=== PATIENT | female | born 1990 | race Caucasian/White ===

== ENCOUNTER 2016-06-17 05:20 | Inpatient (IN) | payer OTHER ==
[2016-06-17] MEDS ORDERED: LACTATED RINGERS 2,000 ML ONE (05:35)
[2016-06-17] MEDS: LACTATED RINGERS 1,000 ML IV NR ×2 (05:45→06:37)
[2016-06-17] MEDS ORDERED: EMLA TP PRN (06:03)
[2016-06-17] MEDS ORDERED: BICITRA PO ONE (06:03)
[2016-06-17] MEDS ORDERED: PEPCID IV ONE (06:03)
[2016-06-17] MEDS ORDERED: REGLAN IV ONE (06:03)
--- NOTE | 2016-06-17 06:08 | History and Physical Report ---
History of Present Illness Date of examination: 06/17/16 Date of admission: 06/17/16 05:20 Chief complaint: Presents for repeat c/s Past History Past Medical History: no pertinent history Past Surgical History: section (x1) Family/Genetic History: diabetes, hypertension Social history: no significant social history - Obstetrical History Expected Date of Delivery: 06/22/16 Actual Gestation: 39 Week(s) 2 Day(s) #1 Gender: Female year: Method of Delivery: Medications and Allergies Allergies Allergy/AdvReac Type Severity Reaction Status Date / Time No Known Allergies Allergy Verified 06/17/16 06:00 Review of Systems All systems: negative - Vital Signs Vital signs: Vital Signs Pulse BP 107 H 144/87 06/17/16 05:50 06/17/16 05:50 Temp Pulse Resp BP Pulse Ox 107 H 144/87 06/17/16 05:50 06/17/16 05:50 - Physical Exam Breasts: Positive: deferred Cardiovascular: Regular rate, Normal S1, Normal S2 Abdomen: Positive: normal appearance, soft, normal bowel sounds. Negative: distention, tenderness Vulva: both: normal Vagina: Positive: normal moisture. Negative: discharge Cervix: Negative: lesion, discharge Uterus: Positive: normal size, normal contour Adnexa: both: normal Anus/Rectum: Positive: normal perianal skin, heme negative. Negative: rectal mass, hemorrhoids Extremities: Deep Tendon Reflex Grade: Normal +2 - Obstetrical FHR: auscultation normal Uterine Contraction Monitor Mode: External Cervical Dilatation: 0 Cervical Effacement Percentage: 0 station: -2 Uterine Contraction Pattern: Irregular Uterine Tone Measurement Phase: Resting Results All other labs normal. Assessment and Plan iup at 39 weeks, previous c/s x1 plan- prepare fore repeat c/s
[2016-06-17 06:18] LABS: Basophils % (Auto) 0.2 % (0.0-1.8); Eosinophils % (Auto) 0.9 % (0.0-4.3); Hemoglobin 11.3 gm/dl (10.1-14.3); Mean Corpuscular HGB Conc 33 % (30-34); Mean Corpuscular Hemoglobin 28 pg (28-32); Mean Corpuscular Volume 85 fl (79-97); Platelet Count 207 K/mm3 (140-440); Red Blood Count 3.99 M/mm3 (3.65-5.03); Red Cell Distribution Width 14.2 % (13.2-15.2); White Blood Count 13.5 K/mm3 (4.5-11.0)
[2016-06-17] MEDS ORDERED: ANCEF/STERILE WATER 2 GM/20 ML 20 ML IV NR (07:00)
--- NOTE | 2016-06-17 07:14 | Anesthesia Day of Surgery ---
Anesthesia Day of Surgery - Day of Surgery Patient Examined: Yes Patient H&P Reviewed: Yes Patient is NPO: Yes
--- NOTE | 2016-06-17 07:14 | Anesthesia Consultation ---
Anesthesia Consult and Med Hx Date of service: 06/17/16 - Airway Anesthetic Teeth Evaluation: Good ROM Head & Neck: Adequate Mental/Hyoid Distance: Adequate Mallampati Class: Class III Intubation Access Assessment: Possibly Difficult - Pre-Operative Health Status ASA Pre-Surgery Classification: ASA2 Proposed Anesthetic Plan: Epidural, Spinal - Pulmonary Hx Asthma: No COPD: No Hx Pneumonia: No - Cardiovascular System Hx Hypertension: Yes (with previous ) - Central Nervous System Hx Seizures: No Hx Psychiatric Problems: No - Endocrine Hx Renal Disease: No Hx End Stage Renal Disease: No Hx Hypothyroidism: No Hx Hyperthyroidism: No - Hematic Hx Anemia: No Hx Sickle Cell Disease: No - Other Systems Hx Alcohol Use: No Hx Obesity: Yes
[2016-06-17] MEDS ORDERED: MORPHINE ONE (07:53)
[2016-06-17] MEDS ORDERED: SODIUM CHLORIDE FLUSH SYRINGE 10 ML IV PRN (08:00)
[2016-06-17] MEDS ORDERED: DILAUDID IV PRN (08:00)
[2016-06-17] MEDS ORDERED: ZOFRAN IV PRN ×2 (08:00→09:46)
[2016-06-17] MEDS ORDERED: BENADRYL IV PRN (08:00)
[2016-06-17] MEDS ORDERED: NARCAN 0.4 MG/1 ML IV PRN ×2 (08:00→09:46)
[2016-06-17] MEDS ORDERED: NACL 0.9% IR ONE (08:26)
[2016-06-17] MEDS ORDERED: WATER FOR IRRIG STERILE IR ONE (08:26)
[2016-06-17] MEDS: PITOCin/NS 20 UNIT/1000ML DRIP 1,000 ML IV NR ×2 (08:40→09:58)
--- NOTE | 2016-06-17 08:45 | Post Anesthesia Evaluation ---
- Post Anesthesia Evaluation Patient Participated: Yes Airway Patent: Yes Stable Respiratory Function: Yes Nausea/Vomiting: No Temp > 96.8F: Yes Pain Manageable: Yes Adequeate Hydration: Yes Anesthesia Complications: No Block Receding Appropriately: Not Applicable Patient on Ventilator: No
--- NOTE | 2016-06-17 09:18 | Procedure Note ---
OB Delivery Note - Delivery Date of Delivery: 06/17/16 Surgeon: GUILLERMO CLARKE Estimated blood loss: other (600ml) - Section Preop diagnosis: repeat Postop diagnosis: same section procedure: section, repeat low transverse Disposition: PACU Complications: none - A at 1 minute: 8 at 5 minutes: 9 Gender: Male (wt 8lbs and 9 oz. infant and mother tolerated the procedure well.)
--- NOTE | 2016-06-17 09:24 | Operative Report ---
Operative Report Operative Report: Preoperative diagnoses- Intrauterine at 39 weeks, previous c/s x1 Postoperative diagnoses- same Procedure- Repeat low segment transverse section Surgeon- Dr. Sylvie Perry Anesthesia- Spinal/epidural Findings- live male wt 8-9, apgars 8 & 9. normal tubes and ovaries Estimated blood loss- 600ml Complications- none Instrument count- Correct Pathology specimens- Placenta- discarded Patient was taken to the OR. Spinal/epidural anesthesia was instituted. Patient was then placed in the dorsolithotomy position and Page catheter was placed. Patient was then returned to the supine position and prepped and draped in usual sterile fashion. Level of anesthesia was checked and found to be adequate. Pfannenstiel skin incision was made. The incision was extended through the subcutaneous tissues to the fascia. Which was incised transversely using Mayos and pickups with teeth. The fascia was from the underlying muscle using Kochers and Bovie cautery. The rectus muscle was then in the midline. The peritoneum was visualized, grasped with hemostats and opened using the Metzenbaum scissors. Upon entering the peritoneal cavity an silverio retractor was placed appropriately. A curvilinear incision was made with Metzenbaum scissors and a smooth pickup. A bladder flap was developed, a curvilinear incision was made in the lower uterine segment using a scalpel. The uterine cavity was entered bluntly with the surgeon's finger and the incision was enlarged. The Head of the infant was delivered . The mouth and nose were suctioned and the remainder of the body was delivered . The cord was doubly clamped and cut . was given to the waiting team. The cord blood was obtained. The placenta was then delivered manually. The uterus is cleaned with a moist wet lap tape. The first layer of the uterus is closed with 0 Vicryl running interlocking stitch. The second layer of the uterus was closed with a 0 Vicryl horizontal imbricating stitch. The pelvic gutters were cleaned . Next the adnexa were examined and found to be normal. Next the fascia was closed with 0 Vicryl running suture. Next the subcutaneous tissue was reapproximated with 3-0 Vicryl running suture. The skin was reapproximated with a 4-0 Vicryl subcuticular stitch. Mastisol and Steri-Strips were placed . A pressure dressing was applied. The patient was transferred to recovery room in stable condition.
[2016-06-17] MEDS ORDERED: MORPHINE IV PRN (09:46)
[2016-06-17] MEDS ORDERED: TORADOL IV PRN (09:46)
[2016-06-17] MEDS ORDERED: LANSINOH TP PRN (09:46)
[2016-06-17] MEDS ORDERED: MILK OF MAGNESIA PO PRN (09:46)
[2016-06-17] MEDS ORDERED: D5LR 1,000 ML IV SCH (09:46)
[2016-06-17] MEDS ORDERED: TUCKS PAD TP PRN (09:46)
[2016-06-17] MEDS ORDERED: PITOCin/NS 20 UNIT/1000ML DRIP 1,000 ML IV SCH (09:46)
[2016-06-17] MEDS ORDERED: SODIUM CHLORIDE FLUSH SYRINGE 10 ML IV NR (09:46)
[2016-06-17] MEDS ORDERED: MYLICON PO PRN (09:46)
[2016-06-17] MEDS: ANCEF/NS 1 GM/50 ML 50 ML IV SCH ×2 (16:49→23:30)
[2016-06-17 20:30] LABS: Hematocrit 28.7 % (30.3-42.9); Hemoglobin 9.6 gm/dl (10.1-14.3)
[2016-06-17] MEDS: PERCOCET 5/325 PO PRN (23:30)
[2016-06-18] MEDS ORDERED: BOOSTRIX IM ONE (06:00)
--- NOTE | 2016-06-18 06:47 | Progress Note ---
Assessment and Plan POD 1 s/p repeat c/s. Anemia noted from blood loss of surgery . iron started Subjective - Subjective Date of service: 06/18/16 Principal diagnosis: POD 1 s/p repeat c/s Interval history: routine pp care Patient reports: appetite normal, voiding normally, pain well controlled : doing well Objective - Vital Signs Latest vital signs: Vital Signs Temp Pulse Pulse Pulse Resp BP BP 06/18/16 05:10 98.5 F 77 18 113/57 06/18/16 01:35 98.7 F 102 H 18 105/58 06/17/16 20:50 98.6 F 91 H 20 116/62 06/17/16 16:36 98.7 F 86 16 126/80 06/17/16 12:28 98.2 F 84 20 128/74 06/17/16 10:34 98.3 F 72 20 142/69 06/17/16 10:14 98.6 F 65 18 135/69 06/17/16 10:07 62 18 124/67 06/17/16 09:52 65 18 122/68 06/17/16 09:37 60 18 121/72 06/17/16 09:29 67 18 113/59 06/17/16 09:25 63 18 06/17/16 09:20 68 18 123/64 06/17/16 09:15 98.4 F 70 18 114/49 06/17/16 07:43 153 H 06/17/16 07:42 163 H 06/17/16 07:41 129 H 06/17/16 07:39 147 H 06/17/16 07:38 192 H 06/17/16 07:37 125 H 06/17/16 07:36 115 H 06/17/16 07:35 110 H 118/91 Pulse Ox 06/18/16 05:10 06/18/16 01:35 06/17/16 20:50 06/17/16 16:36 06/17/16 12:28 06/17/16 10:34 06/17/16 10:14 99 06/17/16 10:07 99 06/17/16 09:52 100 06/17/16 09:37 100 06/17/16 09:29 100 06/17/16 09:25 100 06/17/16 09:20 100 06/17/16 09:15 100 06/17/16 07:43 85 06/17/16 07:42 94 06/17/16 07:41 81 L 06/17/16 07:39 93 06/17/16 07:38 78 L 06/17/16 07:37 65 L 06/17/16 07:36 99 06/17/16 07:35 99 Intake and Output 06/17/16 06/17/16 06/18/16 14:59 22:59 06:59 Intake Total 4740 610 950 Output Total 1650 2000 1100 Balance 3090 -1390 -150 Intake: IV 4620 610 470 Ancef/Sterile Water 2 gm/ 20 20 ml 20 ml @ 80 mls/hr IV PREOP NR Rx#:[id number] Lactated Ringers 1,000 ml 2000 @ 2250 mls/hr IV PREOP NR Rx#:[id number] D5lr 1,000 ml @ 125 mls/ 560 470 hr IV DIRECT SUSAN Rx#: [id number] Ancef/Ns 1 gm/50 ml 50 ml 50 @ 100 mls/hr IV Q8H SUSAN Rx#:[id number] PITOCin/NS 20 UNIT/1000ML 1000 DRIP 1,000 ML @ 250 mls/ hr IV TITR SUSAN Rx#: [id number] Oral 120 Intake, Free Water 480 Output: Urine 1650 1999 1100 Indwelling Catheter 1050 2000 1100 Other: Total, Intake Amount 120 Total, Output Amount 450 1600 600 - Exam Breasts: Present: deferred Cardiovascular: Present: Regular rate, Normal S1, Normal S2 Lungs: Present: Clear to auscultation Abdomen: Present: normal appearance, soft Vulva: both: normal Uterus: Present: normal, firm Extremities: Present: normal Deep Tendon Reflex Grade: Normal +2 Incision: Present: normal, dry, intact - Labs Labs: Abnormal lab results 06/17/16 Range/Units 20:00 Hgb 9.6 L (10.1-14.3) gm/dl Hct 28.7 L (30.3-42.9) %
[2016-06-18] MEDS: PERCOCET 5/325 PO PRN ×4 (08:15→20:23)
[2016-06-18] MEDS: FEOSOL PO SCH (10:20)
[2016-06-18] MEDS: MOTRIN PO PRN ×2 (12:00→18:10)
[2016-06-19 02:21] VITALS: BP 116/64
--- NOTE | 2016-06-19 03:00 | Progress Note ---
Assessment and Plan pod 2 s/p repeat c/s Plan d/c home this pm if stable Subjective - Subjective Date of service: 06/19/16 Principal diagnosis: POD 2 s/p repeat c/s Interval history: routine pp care Patient reports: appetite normal, voiding normally, pain well controlled [place]: doing well Objective - Vital Signs Latest vital signs: Vital Signs Temp Pulse Pulse Resp BP BP 06/19/16 00:00 98.2 F 76 20 116/64 06/18/16 16:45 98.1 F 86 20 124/82 06/18/16 07:52 98.3 F 88 22 128/70 06/18/16 05:10 98.5 F 77 18 113/57 Intake and Output 06/18/16 06/18/16 06/19/16 14:59 22:59 06:59 Intake Total 240 720 Balance 240 720 Intake: Oral 240 720 Other: Total, Intake Amount 240 240 # Voids Void 1 1 1 - Exam Breasts: Present: deferred Cardiovascular: Present: Regular rate, Normal S1, Normal S2 Lungs: Present: Clear to auscultation Abdomen: Present: normal appearance, soft Vulva: both: normal Uterus: Present: normal, firm Extremities: Present: normal Incision: Present: normal, dry, intact
--- NOTE | 2016-06-19 03:03 | Discharge Summary ---
Providers - Providers Date of Admission: 06/17/16 05:20 Date of discharge: 06/19/16 Attending physician: GUILLERMO CLARKE Primary care physician: GUILLERMO CLARKE Hospitalization Reason for admission: active labor Procedure: repeat low transverse Procedure details: s/p repeat lstcs Episiotomy: none Laceration: none Incision: normal, dry, intact Other procedures: none complications: none Discharge diagnosis: IUP at term delivered baby: male Hospital course: routine post op course Condition at discharge: Good Disposition: DISCHARGED TO HOME OR SELFCARE - Discharge Diagnoses (1) S/P repeat low transverse Status: Acute (2) Anemia Status: Acute Comment: from blood loss of delivery Plan - Discharge Medications Prescriptions: Ferrous Sulfate [Feosol 325 MG tab] 325 mg PO BID #60 tablet Ibuprofen [Motrin 800 MG tab] 800 mg PO Q8HR PRN #30 tablet PRN Reason: Pain oxyCODONE /ACETAMINOPHEN [Percocet 5/325] 1 tab PO Q6HR PRN #30 tablet PRN Reason: Pain - Provider Discharge Summary Activity: routine, no sex for 6 weeks, no heavy lifting 4 weeks, no strenuous exercise Diet: routine Instructions: routine Additional instructions: [] Smoking cessation referral if applicable(refer to patient education folder for contact #) [] Refer to [facility] Booklet Call your doctor immediately for: * Fever > 100.5 * Heavy vaginal bleeding ( >1 pad per hour) * Severe persistent headache * Shortness of breath * Reddened, hot, painful area to leg or breast * Drainage or odor from incision. * Keep incision clean and dry at all times and follow doctor's instructions regarding bathing/showering - Follow up plan Follow up: GUILLERMO CLARKE MD [Primary Care Provider] - 14 Days
[2016-06-19] MEDS: PERCOCET 5/325 PO PRN (08:07)
[2016-06-19] MEDS: MOTRIN PO PRN (08:07)
[2016-06-19] MEDS: FEOSOL PO SCH (09:10)
== END 2016-06-19 09:30 | disposition home or self-care (01) | DRG 765 ==
LOC: APU 05:20 → OB 10:39
PROVIDERS: ADMIT Specialist; ATTEND Specialist
PROC: 10D00Z1 Extraction of Products of Conception, Low, Open Approach (ICD-10-PCS; principal; 2016-06-17)
DX: O34.211 Maternal care for low transverse scar from previous cesarean delivery (principal); D62 Acute posthemorrhagic anemia; O90.81 Anemia of the puerperium; Z3A.39 39 weeks gestation of pregnancy; Z37.0 Single live birth; Z83.3 Family history of diabetes mellitus; Z82.49 Family history of ischemic heart disease and other diseases of the circulatory system
CPT/HCPCS: 36415; 59025; 85014; 85018; 85025; 86850; 86900; 86901; 90471; 90715; 96360; 99211; G0463; J0690; J2270; J2590; J2765; J7120; J7121